=== PATIENT | female | born 1955 | race Caucasian/White ===

== ENCOUNTER → 2016-09-21 | Outpatient (CLI) | payer BC ==
[~2016-09-21] MED LIST: ARTHROTEC50 MG PO; ASPIRIN ADULT L81 M1 PO; ASPIRIN EC325 MG PO; BENTYL10 MG PO; CALCIUM 500 +1 EAC3 PO; CEPHALEXIN500 M1 PO; DOXYCYCLINE MO100 MG PO; Diltiazem180 MG PO; FELDENE10 MG PO; MIRALAX POWDER255 GM PO; MONODOX100 MG PO; MULTI VITAMINS1 TAB PO; NORCO 5-325 TA1 EACH PO; OXYCODONE5 M1 PO; POTASSIUM GLUC550 M1 PO; VOLTAREN50 M1 PO
== END | disposition home or self-care (01) ==
LOC: RAD 09:30
DX: M16.0 Bilateral primary osteoarthritis of hip (principal); M19.012 Primary osteoarthritis, left shoulder; M19.011 Primary osteoarthritis, right shoulder; M75.92 Shoulder lesion, unspecified, left shoulder; M75.91 Shoulder lesion, unspecified, right shoulder; M47.892 Other spondylosis, cervical region; M48.02 Spinal stenosis, cervical region; M25.78 Osteophyte, vertebrae

== ENCOUNTER → 2020-04-18 | Outpatient (CLI) | payer BC | END | disposition home or self-care (01) | LOC: COVID19 15:54 | PROVIDERS: ATTEND Physician Assistant Medical | DX: U07.1 COVID-19 (principal) ==

== ENCOUNTER → 2021-04-08 | Outpatient (CLI) | payer BC | END | disposition home or self-care (01) | LOC: COVID19 14:54 | PROVIDERS: ATTEND Student in an Organized Health Care Education/Training Program | DX: Z11.52 Encounter for screening for COVID-19 (principal) ==